=== PATIENT | female | born 1985 | race Caucasian/White ===

== ENCOUNTER 2016-07-27 05:00 | Inpatient (IN) | payer MEDICAID ==
[2016-07-23 10:36] LABS: ABSOLUTE LYMPHOCYTES (AUTO) 1.5 10^3/uL (0.5-4.7); ABSOLUTE MONOCYTES (AUTO) 0.5 10^3/uL (0.1-1.4); BASOPHILS % (AUTO) 0.2 % (0-2); EOSINOPHILS % (AUTO) 0.5 % (0-6); HEMATOCRIT 36.4 % (36.0-47.0); HEMOGLOBIN 12.4 g/dL (12.0-15.5); HGB HCT DIFFERENCE 0.8; LYMPHOCYTES % (AUTO) 14.4 % (13-45); MEAN CORPUSCULAR HEMOGLOBIN 26.7 pg (27.0-33.4); MEAN CORPUSCULAR HGB CONC 33.9 g/dL (32.0-36.0); MEAN CORPUSCULAR VOLUME 79 fl (80-97); RED BLOOD COUNT 4.63 10^6/uL (3.72-5.28); SEGMENTED NEUTROPHILS % (AUTO) 79.9 % (42-78); WHITE BLOOD COUNT 10.1 10^3/uL (4.0-10.5)
[2016-07-23 11:57] LABS: APPEARANCE,URINE SLIGHTLY HAZY; BILIRUBIN,URINE NEGATIVE (NEGATIVE); GLUCOSE, URINE NEGATIVE (NEGATIVE); KETONES,URINE NEGATIVE (NEGATIVE); NITRITE,URINE NEGATIVE (NEGATIVE); PROTEIN,URINE NEGATIVE (NEGATIVE); URINE SPECIFIC GRAVITY 1.004; UROBILINOGEN,URINE NEGATIVE mg/dL (<2.0)
[2016-07-23 11:58] LABS: BACTERIA,URINE 3+ /HPF; LEUKOCYTE ESTERASE,URINE SMALL (NEGATIVE)
[2016-07-23 12:09] LABS: URINE BARBITURATES SCREEN NEGATIVE; URINE METHADONE SCREEN NEGATIVE; URINE OPIATES LOW NEGATIVE; URINE PHENCYCLIDINE SCREEN NEGATIVE
[~2016-07-27 05:00] MED LIST: CEFAZOLIN 1 GM/D5W RTU 1 GM/50 ML RTUPB IV PRN; LACTATED RINGERS 1000 ML IV PRN; LIDOCAINE 0.5% INJ-PF (5 MG/ML) 50 ML SDV SUBCUT PRN; RINGERS SOLUTION,LACTATED 1,500 ML IV PRN
[2016-07-27] MEDS ORDERED: PROPOFOL INJ 200 MG/20 ML VIAL IV ONE (07:36)
[2016-07-27] MEDS ORDERED: OXYTOCIN 10 UNIT/ML VIAL ONE (07:36)
[2016-07-27] MEDS ORDERED: FENTANYL CITRATE INJ/PF 100 MCG/2 ML AMPUL ONE (07:37)
[2016-07-27] MEDS ORDERED: MIDAZOLAM 2 MG/2 ML INJ ONE (07:37)
[2016-07-27] MEDS ORDERED: ACETAMINOPHEN 100 ML IV ONE (08:08)
[2016-07-27] MEDS ORDERED: KETOROLAC TROMETHAMINE INJ/PF 30 MG/1 ML SDV ONE (10:05)
[2016-07-27] MEDS ORDERED: PROMETHAZINE HCL INJ 25 MG/1 ML VIAL IM PRN (10:48)
[2016-07-27] MEDS ORDERED: MEASLES,MUMPS&RUBELLA VACC/PF 0.5 ML VIAL SUBCUT PRN (10:48)
[2016-07-27] MEDS ORDERED: OXYCODONE-ACETAMINOPHEN 5-325 MG TABLET PO PRN (10:48)
[2016-07-27] MEDS ORDERED: DIPH/PERTUSS(ACELL)/TETANUS VAC/PF 0.5 ML SYR (>=10YO) IM PRN (10:48)
[2016-07-27] MEDS ORDERED: ACETAMINOPHEN 325 MG TABLET PO PRN (10:48)
[2016-07-27] MEDS ORDERED: SIMETHICONE 80 MG TAB.CHEW PO PRN (10:48)
[2016-07-27] MEDS ORDERED: HYDROMORPHONE HCL INJ/PF 2 MG/ML AMPULE IV PRN (10:48)
[2016-07-27] MEDS ORDERED: OXYTOCIN/NORMAL SALINE 20 UNIT/1,000 ML RTUINJ INJ PRN (10:48)
[2016-07-27] MEDS ORDERED: RINGERS SOLUTION,LACTATED 1,000 ML IV PRN (11:06)
[2016-07-27] MEDS ORDERED: LIDOCAINE 2% INJ-PF (20 MG/ML) 10 ML AMPUL ONE (11:39)
[2016-07-27] MEDS ORDERED: GLYCOPYRROLATE INJ 0.4 MG/2 ML VIAL ONE (11:39)
[2016-07-27] MEDS ORDERED: PHENYLEPHRINE HCL INJ/PF 10 MG/1 ML SDV ONE (11:39)
[2016-07-27] MEDS ORDERED: ONDANSETRON HCL INJ/PF 4 MG/2 ML SDV ONE (11:39)
[2016-07-27] MEDS ORDERED: METOCLOPRAMIDE HCL INJ/PF 10 MG/2 ML SDV ONE (11:39)
[2016-07-27] MEDS: OXYCODONE-ACETAMINOPHEN 5-325 MG TABLET PO PRN (12:35)
[2016-07-27] MEDS: KETOROLAC TROMETHAMINE INJ/PF 30 MG/1 ML SDV IV SCH (18:04)
[2016-07-27] MEDS: DOCUSATE SODIUM 100 MG CAPSULE PO SCH (18:04)
[2016-07-28] MEDS: OXYCODONE-ACETAMINOPHEN 5-325 MG TABLET PO PRN (00:58)
[2016-07-28] MEDS: KETOROLAC TROMETHAMINE INJ/PF 30 MG/1 ML SDV IV SCH (02:48)
[2016-07-28 07:27] LABS: HEMATOCRIT 31.8 % (36.0-47.0); HEMOGLOBIN 10.5 g/dL (12.0-15.5); HGB HCT DIFFERENCE -0.3; MEAN CORPUSCULAR HEMOGLOBIN 26.9 pg (27.0-33.4); MEAN CORPUSCULAR HGB CONC 32.9 g/dL (32.0-36.0); MEAN CORPUSCULAR VOLUME 82 fl (80-97); RED CELL DISTRIBUTION WIDTH 15.9 % (11.5-14.0)
--- NOTE | 2016-07-28 08:10 | PDOC PROGRESS REPORT ---
Subjective-OB Subjective: Post Delivery Day: 30 year old. Denies any needs at this time Doing well, OOB in halls and walking to nursery, breast feeding, pain under control, eating well, passing gas, scant lochia Physical Exam (OB) Vital Signs: Temp Pulse Resp BP Pulse Ox 97.9 F 92 18 103/61 99 07/28/16 04:14 07/28/16 04:14 07/28/16 04:14 07/28/16 04:14 07/28/16 04:14 Intake & Output 07/27/16 07/28/16 07/29/16 06:59 06:59 06:59 Intake Total 1500 Output Total 2000 Balance -500 Weight 89.81 kg - Dressing Removed: No Incision: Dressing - Lochia Lochia Amount: Small 10-25 ml Lochia Color: Rubra/Red - Abdomen Description: Soft, Round Hernia Present: No Fundal Description: Firm, Midline Fundal Height: u/u - u/2 Objective-Diagnostic Laboratory: 07/28/16 06:50 07/28/16 06:50 WBC 10.0 RBC 3.90 Hgb 10.5 L Hct 31.8 L MCV 82 MCH 26.9 L MCHC 32.9 RDW 15.9 H Plt Count 190 Assessment and Plan(PN) - Time Spent with Patient Time with patient: Less than 15 minutes Medications reviewed and adjusted accordingly: Yes - Disposition Anticipated Discharge: Home Within: within 24 hours
[2016-07-28] MEDS: DOCUSATE SODIUM 100 MG CAPSULE PO SCH ×2 (10:58→17:31)
[2016-07-28] MEDS: IBUPROFEN 800 MG TABLET PO SCH ×3 (10:58→21:00)
[2016-07-28] MEDS: PRENATAL VITAMIN W-O CA NO5/FE FUMARATE/FA CAPSULE PO SCH (11:00)
[2016-07-29] MEDS: IBUPROFEN 800 MG TABLET PO SCH ×2 (03:58→09:08)
--- NOTE | 2016-07-29 08:03 | PDOC PROGRESS REPORT ---
Subjective-OB Subjective: Post Delivery Day: 30 year old. Denies any needs at this time Doing well, OOB in halls, eating, passing gas, no nausea, breast feeding, pain under control, ready to go home Physical Exam (OB) Vital Signs: Temp Pulse Resp BP Pulse Ox 97.9 F 91 18 118/67 100 07/29/16 04:07 07/29/16 04:07 07/29/16 04:07 07/29/16 04:07 07/29/16 04:07 Intake & Output 07/28/16 07/29/16 07/30/16 06:59 06:59 06:59 Intake Total 1500 1800 Output Total 2000 Balance -500 1800 - Dressing Removed: No - opsite Incision: Dressing, Draining - Bilateral Tubal Ligation Dressing Removed: Yes - medipore dressing remored; opisite dressing in place ( same as ) Site: Dressing - Lochia Lochia Amount: Small 10-25 ml Lochia Color: Rubra/Red - Abdomen Description: Soft, Round Hernia Present: No Fundal Description: Firm, Midline Fundal Height: u/u - u/2 Objective-Diagnostic Laboratory: 07/28/16 06:50 Assessment and Plan(PN) - Time Spent with Patient Time with patient: Less than 15 minutes Medications reviewed and adjusted accordingly: Yes - Disposition Anticipated Discharge: Home Within: Other - home today
--- NOTE | 2016-07-29 08:07 | PDOC DISCHARGE SUMMARY ---
Final Diagnosis Discharge Date: 07/29/16 - Final Diagnosis (1) Delivery by section of full-term infant Is this a current diagnosis for this admission?: Yes Discharge Data - Discharge Medication Home Medications: Vit/Iron Fumarate/FA [ Tablet] 1 tab PO DAILY 07/27/16 Ibuprofen [Motrin 800 mg Tablet] 800 mg PO Q6A #60 tablet 07/29/16 Oxycodone HCl/Acetaminophen [Percocet 5-325 mg Tablet] 1 tab PO Q4HP PRN #30 tablet 07/29/16 Gestational Age: 39 Reason(s) for Admission: Ceasarean Section-Repeat, Tubal Ligation Procedures: NST, Ultrasound Intrapartum Procedure(s): : Low Cervical, Transverse - Data Baby 1 Female Weight: 3.289 kg Home with Mother: Yes Complications: No - Diagnosis Test Laboratory: Temp Pulse Resp BP Pulse Ox 97.9 F 91 18 118/67 100 07/29/16 04:07 07/29/16 04:07 07/29/16 04:07 07/29/16 04:07 07/29/16 04:07 07/23/16 07/23/16 07/28/16 09:34 11:12 06:50 RBC 4.63 3.90 Hgb 12.4 10.5 L Hct 36.4 31.8 L Urine Opiates Screen NEGATIVE - Discharge information/Instructions Discharge Activity: Activity As Tolerated, No Lifting Over 10 Pounds, No Lifting /Push/Pulling, Pelvic Rest Discharge Diet: As Tolerated, Regular Disposition: HOME, SELF-CARE Follow up with: [facility] in: 1, Weeks
[2016-07-29 08:32] VITALS: BP 116/66
[2016-07-29] MEDS: PRENATAL VITAMIN W-O CA NO5/FE FUMARATE/FA CAPSULE PO SCH (09:09)
[2016-07-29] MEDS: DOCUSATE SODIUM 100 MG CAPSULE PO SCH (09:09)
--- NOTE | 2016-09-18 09:39 | OPERATIVE REPORT E ---
Operative Report NAME: BEATRICE BETANCOURT : 1985 AGE: 30Y DATE OF SURGERY: 07/27/2016 ROOM: 225 PREOPERATIVE DIAGNOSES: 1. A 39-week intrauterine . 2. History of section for repeat. 3. Patient desires sterilization. POSTOPERATIVE DIAGNOSES: 1. A 39-week intrauterine . 2. History of section for repeat. 3. Patient desires sterilization. SURGEON: Doc Tovar D.O. IT RISK AND ASSURANCE SENIOR MANAGER: None. PROCEDURES: 1. Repeat low transverse section. 2. Bilateral tubal ligation using Filshie clips. ANESTHESIA: Spinal. COMPLICATIONS: None. PATHOLOGY: Placenta. ESTIMATED BLOOD LOSS: 600 mL. FINDINGS: 1. Viable female infant at 8:09 a.m. on 07/27/2016, Apgars 8 at one, 9 at five. 2. Normal-appearing bilateral fallopian tubes and ovaries. DESCRIPTION OF PROCEDURE: The patient was taken to the operating room where spinal anesthesia was administered. Once this was found to be adequate, she was placed in the dorsal supine position with a leftward tilt upon the operating room table. She was then prepped and draped in a normal sterile fashion. A scalpel was then used to make a Pfannenstiel skin incision. The skin incision was carried down through the subcutaneous tissue to the layer of the fascia. The fascia was then incised in the midline and fascial incision was extended bilaterally using Bovie cautery. The superior fascial edge was grasped with Alisson clamps, elevated, and the rectus muscles dissected off sharply and bluntly. Attention was then turned to the inferior fascial edge, which was grasped with Alisson clamps, elevated, and the rectus muscle was dissected off sharply and bluntly. Rectus muscles were then in the midline, peritoneum identified and entered bluntly with the surgeon's hands. Bladder blade was inserted. A scalpel was then used to make a low transverse hysterotomy incision. The was delivered through this incision without difficulty and atraumatically. The nose and mouth were suctioned. Cord was clamped and cut. The was handed off to the awaiting nurses. Cord blood was obtained. The placenta was then manually removed from the uterus. The uterus was then exteriorized and cleared of all clots and debris. The hysterotomy incision was then reapproximated using 2 layers of 1-0 Vicryl in a running, locking fashion. Following closure of the second layer, excellent hemostasis was noted. A Filshie clip was then placed in the mid portion of each fallopian tube without difficulty. The uterus was then returned to the abdomen. The hysterotomy incision was then reinspected and found to have excellent hemostasis. The rectus muscles were then reapproximated using 1-0 Vicryl interrupted sutures and the fascia was then closed using 1-0 Vicryl in a running, non-locking fashion. Subcutaneous spaces were then made hemostatic using Bovie cautery. The skin wounds were then closed with absorbable italia, covered with an OpSite and then with a pressure dressing. At this point in time, the procedure was terminated. All sponge, lap, and needle counts were correct x2. The patient tolerated the procedure well. The patient was taken to recovery room in stable condition. DICTATING PHYSICIAN: Doc Tovar DO [id number] PHY#: [id number] ID: [id number] JOB#: [id number] ACCT: [id number] cc:Doc Tovar D.O. >
--- NOTE | 2016-10-04 09:16 | PDOC DELIVERY SUMMARY ---
Delivery Summary - Maternal Hx : II ARIADNE: 08/02/16 Gestational Age: 39 Ruptured Membranes: AROM Fluids: Clear - Delivery Presentation: Vertex Heart Rate Monitoring: Done Pre-Operatively Support Person Present: Yes - Location: OR : Scheduled, Repeat Placenta: Within Normal Limits Delivery of Placenta Date: 07/27/16 Delivery of Placenta Time: 08:10 - Medications Type of Anesthesia:: Spinal - Assess and Care Baby 1 Female Delivery of Infant Date: 07/27/16 Delivery of Infant Time: 08:09 at 1 minute: 9 at 5 minutes: 9 Preprinted Number On Band: [id number] Infant Skin to Skin: No Mode of Transport: [facility] - Delivery Personnel Nursery RN: ALEX HERNANDEZ RN: BRIANNE MOHR MD: DARREN FELTON
== END 2016-07-29 10:23 | disposition home or self-care (01) | DRG 766 ==
LOC: 2S 05:00
PROVIDERS: ADMIT Obstetrics & Gynecology; ATTEND Obstetrics & Gynecology
PROC: 0UL70CZ Occlusion of Bilateral Fallopian Tubes with Extraluminal Device, Open Approach (ICD-10-PCS; 2016-07-27)
PROC: 4A1HXCZ Monitoring of Products of Conception, Cardiac Rate, External Approach (ICD-10-PCS; 2016-07-27)
PROC: 10D00Z1 Extraction of Products of Conception, Low, Open Approach (ICD-10-PCS; principal; 2016-07-27 07:45)
DX: O34.211 Maternal care for low transverse scar from previous cesarean delivery (principal); Z30.2 Encounter for sterilization; Z3A.39 39 weeks gestation of pregnancy; Z37.0 Single live birth
CPT/HCPCS: 1961; 36415; 59025; 80307; 81001; 85025; 85027; 86850; 86900; 86901; 94799; J0131; J1885; J2250; J2370; J2405; J2590; J2704; J2765; J3010; J3490; J7120